=== PATIENT | female | born 1985 | race Hispanic/Latino ===

== ENCOUNTER 2020-09-30 09:10 | Inpatient (IN) | payer BC, OTHER ==
[2020-09-30] MEDS ORDERED: NS w/ Oxytocin 30 units 500 ML IV SCH ×3 (09:56→19:00)
[2020-09-30] MEDS ORDERED: HYDROcodone/Acetaminophen 5/325 mg Tablet PO PRN ×4 (09:56→18:47)
[2020-09-30] MEDS ORDERED: Promethazine HCl 25 MG/ML VIAL IM PRN ×2 (09:56→12:02)
[2020-09-30] MEDS ORDERED: Diphenoxylate HCl/Atropine Tablet PO PRN ×2 (09:56)
[2020-09-30] MEDS ORDERED: NS w/ Oxytocin 30 units 500 ML IVPB SCH (09:56)
[2020-09-30] MEDS ORDERED: hydrALAZINE 20 MG/ML VIAL SLOW IVP PRN ×2 (09:56→18:47)
[2020-09-30] MEDS ORDERED: Docusate 100 MG CAP PO PRN (09:56)
[2020-09-30] MEDS ORDERED: Acetaminophen 500 MG TAB PO PRN (09:56)
[2020-09-30] MEDS ORDERED: Lidocaine 1% (PF) 30 ML VIAL SC PRN (09:56)
[2020-09-30] MEDS ORDERED: Ibuprofen 800 MG TAB PO PRN (09:56)
[2020-09-30] MEDS ORDERED: Butorphanol Tartrate 1 MG/ML VIAL SLOW IVP PRN (09:56)
[2020-09-30] MEDS ORDERED: Ondansetron PF 4 MG/2 ML Vial IVP PRN ×3 (09:56→18:47)
[2020-09-30] MEDS ORDERED: Misoprostol 200 MCG TAB PR PRN (09:56)
[2020-09-30 10:00] VITALS: BMI 29.9
[2020-09-30 10:55] LABS: Hemoglobin 10.7 g/dL (12.0-15.5); Mean Corpuscular HGB CONC 33.5 g/dL (32.0-36.0); Mean Corpuscular Hemoglobin 29.5 pg (27.0-33.0); Mean Corpuscular Volume 87.9 fl (81.6-98.3); Mean Platelet Volume 9.2 fl (7.4-10.4); Platelet Count 312 10x3/uL (150-450); RBC Distribution Width 13.1 % (11.5-14.5); Red Blood Cell (RBC) Count 3.63 10x6/uL (3.90-5.03); White Blood Cell (WBC) Count 8.3 10x3/uL (3.5-10.5)
[2020-09-30] MEDS ORDERED: Fentanyl 2 mcg/Bup 0.1% Cadd 100 ML ONE (11:08)
[2020-09-30 11:27] LABS: HIV (1/2) Antibody/Antigen Non-Reactive (NonReactive); HIV 1/2 INDEX 0.11 S/CO (<1.00); Hep B Surf Ag Non-Reactive S/CO (NonReactive)
[2020-09-30 11:28] LABS: Syphilis Antibody Nonreactive (Nonreactive); Syphilis Antibody Index 0.02 S/CO (<1.00 Non-Reactive)
[2020-09-30 11:31] LABS: HBSAg Index 0.15 S/CO (0-0.99)
[2020-09-30 11:47] LABS: SARS-CoV-2 NAA Rapid Test Not Detected (NotDetected)
[2020-09-30] MEDS ORDERED: diphenhydrAMINE 50 MG/ML VIAL IVP PRN (12:02)
[2020-09-30] MEDS ORDERED: Acetaminophen 325 MG TAB PO PRN (12:02)
[2020-09-30] MEDS ORDERED: Naloxone HCl 0.4 mg/ml Vial IVP PRN ×2 (12:02)
[2020-09-30] MEDS ORDERED: Lactated Ringer's 500 ML IV PRN (12:02)
[2020-09-30] MEDS ORDERED: Hydrocerin (Eucerin) Cream 120 gm Jar TOP PRN (12:02)
[2020-09-30] MEDS ORDERED: ePHEDrine Sulfate 50 MG/10 ML VIAL SLOW IVP PRN (12:02)
[2020-09-30] MEDS ORDERED: Communication Order-Pharmacy FS SCH (12:15)
[2020-09-30] MEDS ORDERED: Fentanyl 2 mcg/Bupivacaine 0.1% Cassette 100 ML EPIDURAL SCH (12:15)
[2020-09-30] MEDS ORDERED: Bupivacaine 0.25% HCL 30 ML VIAL ONE (15:39)
[2020-09-30] MEDS ORDERED: Boostrix 0.5 ML (Tdap) VIAL IM ONE (18:47)
[2020-09-30] MEDS ORDERED: Lanolin Ointment 7 GM TUBE TOP PRN (18:47)
[2020-09-30] MEDS ORDERED: diphenhydrAMINE 25 MG CAP PO PRN (18:47)
[2020-09-30] MEDS ORDERED: Zolpidem Tartrate 5 MG TAB PO PRN (18:47)
[2020-09-30] MEDS ORDERED: Benzocaine-Menthol 82.5 ML CAN TOP PRN (18:47)
[2020-09-30] MEDS ORDERED: Misoprostol 200 MCG TAB VAG PRN (18:47)
[2020-09-30] MEDS ORDERED: Bisacodyl 10 MG SUPP PR PRN (18:47)
[2020-09-30] MEDS ORDERED: Milk Of Magnesia 30 ML UDCUP PO PRN (18:47)
[2020-09-30] MEDS ORDERED: Preparation H Ointment 28 GM TUBE PR PRN (18:47)
[2020-09-30] MEDS: Lactated Ringer's 1,000 ML IV SCH (20:33)
[2020-09-30] MEDS: Ibuprofen 800 MG TAB PO SCH (22:48)
[2020-09-30] MEDS: Docusate Calcium (SURFAK) 240 MG CAP PO SCH (22:48)
[2020-10-01] MEDS: Ibuprofen 800 MG TAB PO SCH ×2 (05:27→14:23)
[2020-10-01] MEDS: Ferrous Sulfate 325 MG TAB PO SCH ×2 (08:32→15:33)
[2020-10-01] MEDS: Docusate Calcium (SURFAK) 240 MG CAP PO SCH (08:37)
[2020-10-01] MEDS ORDERED: Prenatal Vitamin 1 TAB PO SCH (09:00)
[2020-10-01 17:57] VITALS: BP 118/73; TEMP 98.8
== END 2020-10-01 20:30 | disposition home or self-care (01) | DRG 807 ==
LOC: CSHLD 09:10 → CSHPP 21:30
PROVIDERS: ADMIT Obstetrics & Gynecology; ATTEND Obstetrics & Gynecology
PROC: 10E0XZZ Delivery of Products of Conception, External Approach (ICD-10-PCS; principal; 2020-09-30)
DX: O99.344 Other mental disorders complicating childbirth (principal); Z37.0 Single live birth; Z3A.38 38 weeks gestation of pregnancy; F41.9 Anxiety disorder, unspecified; Z20.822 Contact with and (suspected) exposure to COVID-19
CPT/HCPCS: 36415; 51702; 85027; 86780; 86850; 86900; 86901; 87340; 87389; S0020; U0002